=== PATIENT | male | born 1960 | race Caucasian/White ===

== ENCOUNTER → 2021-10-05 09:45 | Outpatient (CLI) | payer OTHER, MEDICAID, SELFPAY ==
--- NOTE | 2021-10-05 10:17 | DI.RAD.S_ITS ---
PROCEDURE: XR CHEST 2V INDICATIONS: HEMOPTYSIS TECHNIQUE: 2 views of the chest were acquired. COMPARISON: [facility], CT, CT ANGIO CHEST ABD, 08/30/2015, 10:48. [facility], CR, CHEST 2VW, 03/25/2015, 15:12. FINDINGS: Surgical changes and devices: None. Lungs and pleura: There are patchy indistinct opacities bilaterally in the lung bases. No pleural effusions or pneumothorax. Mediastinum: Mediastinal contours are normal. Heart size is normal. Bones and chest wall: No suspicious bony abnormalities. Soft tissues appear unremarkable. IMPRESSION: 1. Bilateral patchy indistinct opacities suggestive of pneumonia. Dictated by: Augustin Solis M.D. on 10/05/2021 at 10:29 Approved by: Augustin Solis M.D. on 10/05/2021 at 10:31
[2021-10-05 10:38] LABS: COVID19 -Nasal RAPID Negative (Negative)
== END ==
PROVIDERS: Referring Provider Nurse Practitioner Family; Visit Provider Nurse Practitioner Family
DX: Z20.822 Contact with and (suspected) exposure to COVID-19 (principal)
CPT/HCPCS: 71046; 87635

== ENCOUNTER 2023-01-01 09:43 | Emergency (ER) | payer OTHER, MEDICAID, SELFPAY ==
[2023-01-01] VITALS (20 sets, daily range): BP systolic 143–214; BP diastolic 77–122; PULSE 51–63; RESP 14–35; TEMP 36.6; O2SAT 94–100; BMI 25.5
--- NOTE | 2023-01-01 09:54 | DI.RAD.S_ITS ---
PROCEDURE: XR CHEST 1V INDICATIONS: chest pain TECHNIQUE: One view of the chest was acquired. COMPARISON: [facility], CR, XR CHEST 2V, 10/05/2021, 10:08. FINDINGS: Surgical changes and devices: None. Lungs and pleura: Lungs are clear. No pleural effusions or pneumothorax. Mediastinum: Mediastinal contours appear normal. Heart size is normal. Bones and chest wall: No suspicious bony lesions. Overlying soft tissues appear unremarkable. IMPRESSION: No acute cardiopulmonary pathology. Dictated by: Gee Hernandez M.D. on 01/01/2023 at 10:32 Approved by: Gee Hernandez M.D. on 01/01/2023 at 10:32
[2023-01-01] MEDS: ASPIRIN 81 MG CHEW TAB 324 MG PO (10:00)
[2023-01-01] MEDS: NITROGLYCERIN 0.4 MG SL TAB SL ×2 (10:02→10:17)
[2023-01-01 10:26] LABS: Prothrombin Time 11.8 SECONDS (10.1-12.7)
[2023-01-01 10:29] LABS: PTT Partial Thromboplastin Tim 30 SECONDS (26-36)
[2023-01-01 10:31] LABS: Alanine Aminotransferase 25 IU/L (<50); Albumin 4.1 g/dL (3.5-5.0); Albumin Globulin Ratio 1.2 (1.0-2.8); Alkaline Phosphatase 57 U/L (38-126); Aspartate Aminotransferase 26 IU/L (17-59); BUN Creatinine Ratio 16.7 (6-22); Blood Urea Nitrogen 15 mg/dL (9-20); Calcium 9.5 mg/dL (8.4-10.2); Carbon Dioxide 36 mmol/L (22-32); Chloride 96 mmol/L (98-107); Creatine Kinase 35 U/L (55-170); Estimated Glomerular Filt Rate > 60 mL/min (>60); Globulin 3.3 g/dL (1.7-4.1); Glucose 113 mg/dL (80-110); HEMOLYSIS < 15 (0-50); Lipase 37 U/L (23-300); Magnesium 1.5 mg/dL (1.6-2.3); Potassium 3.7 mmol/L (3.4-5.1); Sodium 136 mmol/L (137-145); Total Protein 7.4 g/dL (6.3-8.2)
[2023-01-01 10:36] LABS: Add Manual Diff / Slide Review NO; Basophils Absolute Auto 100 /uL (0-100); Eosinophils Absolute Auto 200 /uL (0-450); Eosinophils Percent Auto 2.7 % (2-4); Hematocrit 43.5 % (41-53); Hemoglobin 14.7 g/dL (13.5-17.5); Lymphocytes Absolute Auto 2300 /uL (1100-4500); Lymphocytes Percent Auto 26.3 % (25-40); Mean Corpuscular HGB Conc 33.8 % (30-36); Mean Corpuscular Volume 97.8 fL (80-100); Monocytes Absolute Auto 500 /uL (0-900); Monocytes Percent Auto 5.9 % (3-14); Neutrophils Absolute Auto 5500 /uL (1500-7000); Neutrophils Percent Auto 64.1 % (50-75); Platelet Count 254 X10^3/uL (150-400); Red Blood Cell Count 4.45 X10^6/uL (4.5-5.9); White Blood Cell Count 8.6 X10^3/uL (4.5-11.0)
[2023-01-01 10:41] LABS: COVID19 -Nasal RAPID Negative (Negative)
[2023-01-01 10:42] LABS: Troponin I < 0.012 ng/mL (0.01-0.034)
--- NOTE | 2023-01-01 12:13 | ED_ITS ---
HPI - Chest Pain General Chief Complaint: Chest Pain Stated Complaint: sent by [facility] BP issues Time Seen by Provider: 01/01/23 12:11 Source: patient Mode of arrival: Ambulatory Limitations: no limitations History of Present Illness HPI narrative: This is a 62-year-old male with history of hypertension on atenolol, li sinopril/HCTZ and aspirin 81 mg daily who presents with an episode of chest pressure that was substernal without radiation lasted about an hour while he was watching basketball on Sunday the 30 of December. He checked his blood pressure noticed systolic of 216 at that time, he has been checking his blood pressure throughout the weekend and is getting an average of 160s to 180s on his systolic. Patient states he had additional episode today where he had very slight discomfort in his chest substernally without radiation. He states nothing else seemed to make it worse or better. He states no diaphoresis. No lightheadedness or syncope. No shortness of breath. No nausea or vomiting. No diaphoresis. He states he is not had prior episodes in the past. He states he had 2 sublingual nitro here which he states did not seem to make a difference but he states it has improved. Patient's blood pressure did decrease with the nitro. Did take his a.m. medications today. He has not had prior cardiac workups or stress testing or heart catheterization. He denies prior surgeries. No known drug allergies. He does smoke tobacco smokes daily for the past 50 years, states he drinks 2 or 3 alcoholic drinks daily. He uses marijuana intermittently but no recreational drugs no IV drugs. Dr. Marty Hunter at [facility] is his primary care. Related Data Home Medications Medication Instructions Recorded Confirmed aspirin 81 mg tablet,delayed 81 mg PO DAILY 10/05/21 01/01/23 release (Adult Low Dose Aspirin) atenolol 50 mg tablet 50 mg PO DAILY 01/01/23 01/01/23 lisinopril 10 mg tablet 10 mg PO DAILY 01/01/23 01/01/23 Previous Rx's Medication Instructions Recorded lisinopril 20 2 tab PO DAILY #60 tabs 01/01/23 mg-hydrochlorothiazide 25 mg tablet Allergies Allergy/AdvReac Type Severity Reaction Status Date / Time No Known Drug Allergies Allergy Verified 01/01/23 09:54 Review of Systems Review of Systems ROS Unobtainable: All systems reviewed & are unremarkable except as noted in HPI and below Patient History Social History Smoking Status: Current every day smoker Smoking Status: Current every day smoker alcohol intake frequency: 3 or more drinks per day Substance Use Type: marijuana Exam Narrative Exam Narrative: GENERAL: Alert and oriented x three, male in mild distress. HEENT: Head normocephalic, atraumatic, EOMI, pupils reactive, face symmetric, moist mucous membranes NECK: Supple, full range of motion CARDIOVASCULAR: Regular rate and rhythm without murmurs, rubs or gallops. No reproducible chest pain. No rash or skin changes. RESPIRATORY: Breath sounds equal bilaterally, no wheezes rales or rhonchi. ABDOMEN: Soft, nontender. Normoactive bowel sounds all 4 quadrants. No guarding or rebound, rigidity, no mass : No CVA tenderness EXTREMITIES: Normal range of motion, no clubbing or edema. Neurovascularly intact. 2+ dorsalis pedis. No mottling, cyanosis or pallor or other skin changes noted. NEUROLOGICAL: Cranial nerves II through XII grossly intact. Moving all extremities SKIN: Warm, dry, no petechiae, no rashes or lesions. Initial Vital Signs Initial Vital Signs: Vital Signs Temperature 97.9 F 01/01/23 09:48 Pulse Rate 58 L 01/01/23 09:48 Respiratory Rate 18 01/01/23 09:48 Blood Pressure 214/96 H 01/01/23 09:48 Pulse Oximetry 99 01/01/23 09:48 Oxygen Delivery Method Room Air 01/01/23 09:48 Scores HEART Score Heart Score history: Moderately Suspicious Heart Score EKG: Non-Specific repolarization disturbance Heart Score Age: 45-64 years old Heart Score risk factors: 1-2 risk factors Heart Score troponin: < or = to normal limit Heart Score Total: 4 Course Orders Ordered: ED Orders 01/01/23 09:54 XR chest 1V Stat 01/01/23 10:00 COVID19 -Nasal RAPID Stat Complete Blood Count AUTO DIFF Stat Comprehensive Metabolic Panel Stat Lipase Stat Magnesium Stat PTT Partial Thromboplastin Avinash Stat Prothrombin Time INR Stat Troponin & CK Cardiac Panel Stat EKG-12 Lead Stat 01/01/23 12:06 EKG-12 Lead Stat 01/01/23 12:15 Troponin I Stat Discontinued Medications Aspirin (Aspirin 81 Mg Chew Tab) 324 mg PO NOW ONE Stop: 01/01/23 09:55 Last Admin: 01/01/23 10:00 Dose: 324 mg Documented By: NAYE Nitroglycerin (Nitroglycerin 0.4 Mg Sl Tab) 0.4 mg SL [id number] PRN PRN Reason: Chest Pain Last Admin: 01/01/23 10:17 Dose: 0.4 mg Documented By: Admin: 01/01/23 10:02 Dose: 0.4 mg Documented By: NAYE Vital Signs Vital signs: Vital Signs - 8 hr 01/01/23 10:45 01/01/23 10:45 01/01/23 11:00 Pulse Rate 53 L 51 L Respiratory Rate 23 21 Blood Pressure 145/97 H Pulse Oximetry 96 95 01/01/23 11:01 01/01/23 11:01 01/01/23 11:15 Pulse Rate 52 L 51 L Respiratory Rate 23 23 Blood Pressure 156/94 H Pulse Oximetry 94 95 01/01/23 11:15 01/01/23 11:30 01/01/23 11:30 Pulse Rate 51 L Respiratory Rate 21 Blood Pressure 162/97 H 171/104 H Pulse Oximetry 96 01/01/23 11:45 01/01/23 11:45 01/01/23 12:00 Pulse Rate 51 L Respiratory Rate 24 Blood Pressure 162/98 H 171/95 H Pulse Oximetry 95 01/01/23 12:00 01/01/23 12:15 01/01/23 12:15 Pulse Rate 51 L 56 L Respiratory Rate 19 29 H Blood Pressure 156/87 H Pulse Oximetry 96 96 01/01/23 12:30 01/01/23 12:30 01/01/23 12:45 Pulse Rate 51 L 52 L Respiratory Rate 23 27 H Blood Pressure 177/95 H Pulse Oximetry 97 97 01/01/23 12:45 01/01/23 13:00 01/01/23 13:01 Pulse Rate 52 L Respiratory Rate 29 H Blood Pressure 174/98 H 194/96 H Pulse Oximetry 96 01/01/23 13:01 01/01/23 13:16 01/01/23 13:16 Pulse Rate 53 L 53 L Respiratory Rate 35 H 29 H Blood Pressure 164/122 H Pulse Oximetry 96 96 MDM - Chest Pain Lab Data 01/01/23 10:00 01/01/23 10:00 Labs: Lab Results 01/01/23 01/01/23 01/01/23 Range/Units 10:00 10:00 10:00 WBC 8.6 (4.5-11.0) X10^3/uL RBC 4.45 L (4.5-5.9) X10^6/uL Hgb 14.7 (13.5-17.5) g/dL Hct 43.5 (41-53) % MCV 97.8 (80-100) fL MCH 33.0 (26-34) PG MCHC 33.8 (30-36) % RDW 13.0 (11.6-14.8) % Plt Count 254 (150-400) X10^3/uL Neut % (Auto) 64.1 (50-75) % Lymph % (Auto) 26.3 (25-40) % [place]mort[place] % (Auto) 5.9 (3-14) % Eos % (Auto) 2.7 (2-4) % Baso % (Auto) 1.0 (0-2) % Neut # (Auto) 5500 (4490-6815) /uL Lymph # (Auto) 2300 (5006-4962) /uL Th[place]morton # (Auto) 500 (0-900) /uL Eos # (Auto) 200 (0-450) /uL Baso # (Auto) 100 (0-100) /uL PT 11.8 (10.1-12.7) SECONDS INR 1.0 (0.9-1.3) APTT 30 (26-36) SECONDS Sodium 136 L (137-145) mmol/L Potassium 3.7 (3.4-5.1) mmol/L Chloride 96 L (98-107) mmol/L Carbon Dioxide 36 H (22-32) mmol/L BUN 15 (9-20) mg/dL Creatinine 0.90 (0.66-1.25) mg/dL Estimated GFR > 60 (>60) mL/min BUN/Creatinine Ratio 16.7 (6-22) Glucose 113 H (80-110) mg/dL Calcium 9.5 (8.4-10.2) mg/dL Magnesium 1.5 L (1.6-2.3) mg/dL Total Bilirubin 1.0 (0.2-1.3) mg/dL AST 26 (17-59) IU/L ALT 25 (<50) IU/L Alkaline Phosphatase 57 (38-126) U/L Total Creatine Kinase 35 L (55-170) U/L CK-MB (CK-2) TNP CK-MB (CK-2) Rel Index TNP Troponin I < 0.012 (0.01-0.034) ng/mL Total Protein 7.4 (6.3-8.2) g/dL Albumin 4.1 (3.5-5.0) g/dL Globulin 3.3 (1.7-4.1) g/dL Albumin/Globulin Ratio 1.2 (1.0-2.8) Lipase 37 (23-300) U/L SARS-CoV-2 (PCR) (Negative) 01/01/23 01/01/23 Range/Units 10:00 12:15 WBC (4.5-11.0) X10^3/uL RBC (4.5-5.9) X10^6/uL Hgb (13.5-17.5) g/dL Hct (41-53) % MCV (80-100) fL MCH (26-34) PG MCHC (30-36) % RDW (11.6-14.8) % Plt Count (150-400) X10^3/uL Neut % (Auto) (50-75) % Lymph % (Auto) (25-40) % Th[place]morton % (Auto) (3-14) % Eos % (Auto) (2-4) % Baso % (Auto) (0-2) % Neut # (Auto) (3027-0287) /uL Lymph # (Auto) (6563-2079) /uL Throckmorton # (Auto) (0-900) /uL Eos # (Auto) (0-450) /uL Baso # (Auto) (0-100) /uL PT (10.1-12.7) SECONDS INR (0.9-1.3) APTT (26-36) SECONDS Sodium (137-145) mmol/L Potassium (3.4-5.1) mmol/L Chloride (98-107) mmol/L Carbon Dioxide (22-32) mmol/L BUN (9-20) mg/dL Creatinine (0.66-1.25) mg/dL Estimated GFR (>60) mL/min BUN/Creatinine Ratio (6-22) Glucose (80-110) mg/dL Calcium (8.4-10.2) mg/dL Magnesium (1.6-2.3) mg/dL Total Bilirubin (0.2-1.3) mg/dL AST (17-59) IU/L ALT (<50) IU/L Alkaline Phosphatase (38-126) U/L Total Creatine Kinase (55-170) U/L CK-MB (CK-2) CK-MB (CK-2) Rel Index Troponin I < 0.012 (0.01-0.034) ng/mL Total Protein (6.3-8.2) g/dL Albumin (3.5-5.0) g/dL Globulin (1.7-4.1) g/dL Albumin/Globulin Ratio (1.0-2.8) Lipase (23-300) U/L SARS-CoV-2 (PCR) Negative (Negative) Imaging Data Chest x-ray: Radiologist's Impression: Close Chest X-Ray (Signed) Gee Hernandez - 01/01/23 Chest X-Ray (Signed) Augustin Solis - 10/05/21 [place] [address] XRay Report Signed Patient: Armand Ramires MR#: [id number] : 1960 Acct:[id number] Age/Sex: 62 / M Date of Service: 01/01/23 Loc: ED Accession Number: [id number] ?? Procedure: XR chest 1V Ordering Provider: Roberta Moody D.O. PROCEDURE:? XR CHEST 1V ? INDICATIONS:? chest pain ? TECHNIQUE:? One view of the chest was acquired.? ? COMPARISON:? [facility], , XR CHEST 2V, 10/05/2021, 10:08. ? FINDINGS:? ? Surgical changes and devices:? None.? ? Lungs and pleura:? Lungs are clear.? No pleural effusions or pneumothorax.? ? Mediastinum:? Mediastinal contours appear normal.? Heart size is normal.? ? Bones and chest wall:? No suspicious bony lesions.? Overlying soft tissues appear unremarkable.? ? IMPRESSION:? No acute cardiopulmonary pathology. ? ? Dictated by: Gee Hernandez M.D. on 01/01/2023 at 10:32 ? ? Approved by: Gee Hernandez M.D. on 01/01/2023 at 10:32?? ECG Data Attestation: I personally reviewed and interpreted this ECG as follows: Prior ECG tracings: available for review Interpretation: Sinus bradycardia rate of 54 DC 140 QRS 88 QTC 392. No acute ST change appreciated. No priors for comparison. Sinus bradycardia rate of 51 DC 136 QRS of 90 QTC 385. No acute ST elevation or depression appreciated. MDM Narrative Medical decision making narrative: This is a 62-year-old male who presents with complaint of substernal/left-sided chest pain without radiation 1st episode was Sunday for about an hour or watching basketball had recurrent episode this morning he also noted some discomfort in his foot at same time throughout the night but he states there seemed to be color changes none are appreciated today by himself or myself. Patient's EKGs show possible LVH x2 no priors for comparison. Negative troponin x2, normoactive chest x-ray, labs otherwise show slightly low magnesium total CK is low, no significant anemia. COVID is negative. Workup does not show other cause for his discomfort today. Discussed I would like to keep patient for chest pain observation. patient defers we did discuss risks versus benefits and the difficulty can be getting outpatient stress test currently discussed that he does appear to be having somewhat elevated blood pressures so I would adjust his medication his heart rate is on the lower end so it adjust his lisinopril/HCTZ and continue his atenolol 50 mg daily. Patient is to continue his aspirin 81 mg daily. We discussed return precautions. Asked him to follow up with his physician for recheck and outpatient stress testing as I think his symptoms and story very much warrant this. He does follow with his physician but states it is hard to get in and would like alternative options some additional names were given. Discharge Plan Departure Patient Disposition: Home Clinical Impression: Chest pain Instructions: DI for Chest Pain Activity Restrictions/Additional Instructions: I do recommend you stay for observation for stress testing. Please contact your physician to set up stress testing. Ask your physicians about getting ABIs for alternative tests this can check for peripheral vascular disease. Continue your aspirin daily. Continue your current medications, lets increase your lisinopril/HCT to 1 tablet in the morning and 1 tablet in the afternoon. Prescription sent to [facility] Please return for new or worsening chest pain, shortness of breath, lightheadedness or passing out, persistent vomiting new swelling in her extremities or new color changes or pain in your feet. Prescriptions: New lisinopril-hydrochlorothiazide 20-25 mg tablet 2 tab PO DAILY Qty: 60 0RF No Action aspirin [Adult Low Dose Aspirin] 81 mg tablet,delayed release (DR/EC) 81 mg PO DAILY lisinopril 10 mg Tablet 10 mg PO DAILY atenolol 50 mg Tablet 50 mg PO DAILY Referrals: Elsa Ferguson MD [Primary Care Provider] - Stand Alone Forms: Patient Portal/API
[2023-01-01 12:44] LABS: Troponin I < 0.012 ng/mL (0.01-0.034)
--- NOTE | 2023-01-01 12:59 | PC.NURSE ---
Medication reconciled, pt is unsure of dose of lisinopril and atenolol but believes it is what is currently documented.
== END 2023-01-01 13:26 | disposition home or self-care (01) ==
PROVIDERS: Emergency Provider Emergency Medicine; PCP Family Medicine
DX: R07.9 Chest pain, unspecified (principal); Z20.822 Contact with and (suspected) exposure to COVID-19
CPT/HCPCS: 36415; 71045; 80053; 82550; 83690; 83735; 84484; 85025; 85610; 85730; 87635; 93005; 99284; C9803

== ENCOUNTER 2023-05-30 11:12 | Emergency (ER) | payer OTHER, MEDICAID, SELFPAY ==
[2023-05-30 11:27] VITALS: BP 178/86; PULSE 62; RESP 16; TEMP 37; O2SAT 99; BMI 26.3
--- NOTE | 2023-05-30 12:33 | DI.US.S_ITS ---
PROCEDURE: US PERIPH VENOUS LOW EXTREM LT INDICATIONS: LEFT CALF PAIN TECHNIQUE: Real-time imaging, as well as color and pulse Doppler interrogation, were performed of the lower extremity deep veins from the inguinal ligament to the popliteal fossa, with documentation of the visualized calf veins. COMPARISON: None. FINDINGS: The common femoral, femoral, popliteal, and the visualized calf veins are normally compressible, and free of intraluminal thrombus. Color and pulse Doppler demonstrate normal phasic intraluminal flow. There is normal augmentation response to distal compression maneuver. IMPRESSION: No findings of lower extremity deep venous thrombosis. Dictated by: Petros Tuttle M.D. on 05/30/2023 at 12:32 Approved by: Petros Tuttle M.D. on 05/30/2023 at 12:32
--- NOTE | 2023-05-30 12:34 | ED.EXTPRO ---
HPI - Extremity Problem <Eloisa Pulido PA-C - Last Filed: 05/30/23 14:50> General Chief complaint: Extremity Problem,Nontraumatic Stated complaint: L/leg pain and tingling sensation Time Seen by Provider: 05/30/23 12:21 History of Present Illness HPI Narrative: Patient is a 63-year-old male who presents with left lower extremity pain and tingling for 48 hours. 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 The sleep sensation has never resolved and he has intense pain feeling of numbness in his lateral left calf. He reports it feels like his foot is full of blood and sloshing around. He denies any trauma to his lower extremity. He is able to ambulate but it is very painful. Denies any previous history with numbness or tingling in his extremities. He is tried elevating the leg. He does not have any associated back pain. He is no history of DVT, no recent surgery or or travel or immobilization. Related Data Home Medications Medication Instructions Recorded Confirmed aspirin 81 mg tablet,delayed 81 mg PO DAILY 10/05/21 01/01/23 release (Adult Low Dose Aspirin) atenolol 50 mg tablet 50 mg PO DAILY 01/01/23 01/01/23 lisinopril 10 mg tablet 10 mg PO DAILY 01/01/23 01/01/23 Previous Rx's Medication Instructions Recorded lisinopril 20 2 tab PO DAILY #60 tabs 01/01/23 mg-hydrochlorothiazide 25 mg tablet Allergies Allergy/AdvReac Type Severity Reaction Status Date / Time No Known Drug Allergies Allergy Verified 01/01/23 09:54 Review of Systems <Eloisa Pulido PA-C - Last Filed: 05/30/23 14:50> Review of Systems ROS Unobtainable: All systems reviewed & are unremarkable except as noted in HPI and below Patient History <Eloisa Pulido PA-C - Last Filed: 05/30/23 14:50> Social History Smoking Status: Current every day smoker Smoking Status: Current every day smoker alcohol intake frequency: 3 or more drinks per day Substance Use Type: marijuana Exam <Eloisa Pulido PA-C - Last Filed: 05/30/23 14:50> Narrative Exam Narrative: GENERAL: 63 year old patient appears stated age. Well-developed patient, in no distress. NEURO: AOx3. HEAD: Atraumatic. Normocephalic. RESPIRATORY: No distress EXTREMITIES: No lower extremity edema, left calf is supple. No erythema. Pain is localized over the lateral calf. Strong DP pulse, foot is warm, 5/5 strength with plantar flexion and dorsiflexion. BACK: Nontender without deformity or crepitance. No flank tenderness. SKIN: No rash or erythema of visible areas Initial Vital Signs Initial Vital Signs: Vital Signs Temperature 98.6 F 05/30/23 11:27 Pulse Rate 62 05/30/23 11:27 Respiratory Rate 16 05/30/23 11:27 Blood Pressure 178/86 H 05/30/23 11:27 Pulse Oximetry 99 05/30/23 11:27 Oxygen Delivery Method Room Air 05/30/23 11:27 <Richard Boone DO - Last Filed: 06/01/23 14:42> Initial Vital Signs Initial Vital Signs: Vital Signs Temperature 98.6 F 05/30/23 11:27 Pulse Rate 62 05/30/23 11:27 Respiratory Rate 16 05/30/23 11:27 Blood Pressure 178/86 H 05/30/23 11:27 Pulse Oximetry 99 05/30/23 11:27 Oxygen Delivery Method Room Air 05/30/23 11:27 Course <Eloisa Pulido PA-C - Last Filed: 05/30/23 14:50> Orders Ordered: ED Orders 05/30/23 12:33 perip venous low extrem lt Stat Vital Signs Vital signs: Vital Signs - 8 hr 05/30/23 11:27 Temperature 98.6 F Pulse Rate 62 Respiratory Rate 16 Blood Pressure 178/86 H Pulse Oximetry 99 Oxygen Delivery Method Room Air <Richard Boone DO - Last Filed: 06/01/23 14:42> Orders Ordered: ED Orders 05/30/23 12:33 perip venous low extrem lt Stat Vital Signs Vital signs: Vital Signs - 8 hr 05/30/23 11:27 Temperature 98.6 F Pulse Rate 62 Respiratory Rate 16 Blood Pressure 178/86 H Pulse Oximetry 99 Oxygen Delivery Method Room Air MDM - Extremity (Nontraumatic) <Eloisa Pulido PA-C - Last Filed: 05/30/23 14:50> Imaging Data US - DVT: Radiologist's Impression: PROCEDURE:? US PERIPH VENOUS LOW EXTREM LT ? INDICATIONS:? LEFT CALF PAIN ? TECHNIQUE:? Real-time imaging, as well as color and pulse Doppler interrogation, were performed of the lower extremity deep veins from the inguinal ligament to the popliteal fossa, with documentation of the visualized calf veins.? ? COMPARISON:? None. ? FINDINGS:? The common femoral, femoral, popliteal, and the visualized calf veins are normally compressible, and free of intraluminal thrombus.? Color and pulse Doppler demonstrate normal phasic intraluminal flow.? There is normal augmentation response to distal compression maneuver.? ? ? IMPRESSION:? No findings of lower extremity deep venous thrombosis. ? ? Dictated by: Pertos Tuttle M.D. on 05/30/2023 at 12:32 ? ? Approved by: Petros Tuttle M.D. on 05/30/2023 at 12:32 ? MDM Narrative Medical decision making narrative: Multiple etiologies for patient's symptoms considered including, but not limited to: Compressive neuropathy of the peroneal nerve, DVT, bony abnormality. No history of trauma, no known risk factors for DVT and physical exam not consistent with DVT. Will obtain lower extremity Doppler to rule out DVT but suspect a compressive neuropathy from peroneal nerve injury after prolonged sitting. DVT study negative. Patient's symptoms improved over duration of stay with above-stated therapies. 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 Your DVT study was negative. I suspect your pain is related to compression of the fibular nerve while you were sitting. It will take time to resolve. You can try ibuprofen, Tylenol, elevation, ice, rest, heat. *What to do: *Please continue to take your regular medications as directed. [ ] New medication prescriptions sent to your pharmacy: [ ] [ ] New medication written as a paper prescription [ x] No new medications given *Please follow up with your primary care provider in 2-3 days, call for an appointment. Let them know you were seen in the Emergency Department and that we ask that you be seen in follow up. We will electronically transmit a record of today's note if your PCP is in our system *If you do not have a primary care provider please contact the [facility] Resource line at [phone]. They will ask some questions about your medical history and help get you set up with a doctor in the community. *Return to Emergency Department if you should have any new, worsening or concerning symptoms, such as [fever greater than 101 F, shaking chills, worsening pain, persistent vomiting or other bothersome symptoms] FIBULAR (PERONEAL) NERVE Compression at the fibular neck???The most frequent site of injury to the common fibular (peroneal) nerve is just below the knee as the nerve wraps around the lateral aspect of the fibula, immediately before dividing into its deep and superficial branches. Compression at this site is frequently produced by external pressure on the nerve due to prolonged lying, such as during surgery, palmar pressure to the fibular neck during childbirth, or prolonged hospitalization. Crossing the legs, protracted squatting, and leg casts also can cause compression at this site. The typical clinical presentation of common fibular (peroneal) neuropathy at the fibular neck is acute foot drop (difficulty dorsiflexing the foot against resistance or gravity). Patients describe the foot as limp; there is a tendency to trip over it unless they compensate by flexing the hip higher when walking, producing what is called a steppage gait. Patients may also complain of paresthesias and/or sensory loss over the dorsum of the foot and lateral mariano (superficial fibular (peroneal) nerve territory) [[email or web address]-[email or web address]-ywxpn-syndromes/abstract/[email or web address]]. In one study, 79 percent of 103 patients with common fibular (peroneal) neuropathy complained of sensory loss; pain was relatively infrequent, affecting only 17 percent [[email or web address]-pf-prydo-nolvyyomi-tvxkutycli-ohzhl-syndromes/abstract/7]. Examination typically reveals weakness in foot dorsiflexion and foot eversion (deep and superficial fibular (peroneal) nerve-innervated, respectively), with normal inversion and plantar flexion (tibial nerve). Sensory disturbance is confined to the dorsum of the foot, including the web space between digits 1 and 2 and the lateral mariano. Reflexes are normal. Electromyography (EMG) and nerve conduction studies (NCS) are very useful for identifying fibular (peroneal) neuropathy at the fibular neck; conduction block on fibular (peroneal) motor studies may be identified at the site, even in the acute setting. Reduction in distal motor and sensory response amplitudes can occur in severe cases, suggesting axonal injury. Needle examination discloses abnormalities in the deep and superficial fibular (peroneal) nerve innervated muscles. Treatment???In contrast to upper extremity neuropathies, treating compression neuropathies of the lower extremity is often not possible or of limited benefit. In patients with a fibular (peroneal) neuropathy at the fibular neck, for example, no specific treatment is available other than removing pressure on the nerve (such as extra cushioning while sleeping and avoidance of crossing the legs during the day). An ankle-foot orthosis splint, to keep the foot dorsiflexed, should be used until active movement has recovered. Physical therapy progressing from passive range of movement to passive-assistive, active, and active-resistance exercise under supervision with a physical therapist may also be helpful. Walking is particularly important therapy. Prognosis depends upon the degree of dysfunction. In one study of 13 patients with idiopathic common fibular (peroneal) palsy, those presenting with complete lesions (no preserved function in foot dorsiflexion and foot eversion) made no significant recovery, while patients with even mildly preserved strength recovered fully Operative decompression can be considered for patients who do not recover on their own, although true entrapment of the fibular (peroneal) nerve is uncommon. One market investigator, for example, explored 26 common fibular (peroneal) nerves in 23 patients; evidence for entrapment was found in only one of the eight with no other apparent cause for the neuropathy ]. Entrapment should be suspected when symptoms and signs progress and no other cause is identified. In that circumstance, surgical decompression can be successful. Compression at the ankle???The deep fibular (peroneal) nerve is rarely injured in the region of the ankle. Usually injury is due to a tight-fitting rim or strap from a shoe. Patients generally complain of pain in the region with minimal weakness and sensory disturbance involving only the web space between digits 1 and 2. Directed physical examination reveals minimal abnormalities. NCS may demonstrate a prolonged distal motor latency; on needle EMG, abnormalities can be identified in extensor digitorum brevis. Other???Injury to the common fibular (peroneal) nerve occasionally occurs in the popliteal fossa, immediately after the division of the sciatic nerve into tibial and common fibular (peroneal) nerves. Alexander's cysts are the most common cause in this region. Nerve infarctions due to mononeuropathy multiplex also occur in the area of the knee and, at least acutely, may be difficult to distinguish from a compressive neuropathy at the fibular neck, although pain is prominent in vasculitic lesions and is minimal in compressive ones. Prescriptions: No Action aspirin [Adult Low Dose Aspirin] 81 mg tablet,delayed release (DR/EC) 81 mg PO DAILY lisinopril 10 mg Tablet 10 mg PO DAILY atenolol 50 mg Tablet 50 mg PO DAILY lisinopril-hydrochlorothiazide 20-25 mg tablet 2 tab PO DAILY Qty: 60 0RF Referrals: Elsa Ferguson MD [Primary Care Provider] - Stand Alone Forms: Patient Portal/API <Richard Boone DO - Last Filed: 06/01/23 14:42> Cosign ED Attending Coschristianoature Attestation: I was immediately available in the department for consultation. Documentation has been reviewed. I agree with assessment and plan.
== END 2023-05-30 13:13 | disposition home or self-care (01) ==
PROVIDERS: Emergency Provider Physician Assistant; PCP Family Medicine
DX: G57.90 Unspecified mononeuropathy of unspecified lower limb (principal); Z79.899 Other long term (current) drug therapy
CPT/HCPCS: 93971; 99283

== ENCOUNTER 2024-05-28 03:53 | Emergency (ER) | payer OTHER, MEDICAID, SELFPAY ==
[2024-05-28 04:00] VITALS: BP 223/120; PULSE 63; RESP 20; TEMP 36.5; O2SAT 97; BMI 25.7
[2024-05-28] MEDS: diphenhydrAMINE 50 MG/ML VIAL 25 MG IV (04:03)
[2024-05-28] MEDS: methylPREDNISolone 125 MG/2 ML VIAL IV (04:04)
--- NOTE | 2024-05-28 04:11 | ED.ALLEREA ---
HPI - Allergic Reaction General Chief complaint: Allergic Reaction Stated complaint: bee sting face swollen Time Seen by Provider: 05/28/24 03:56 Source: patient Mode of arrival: Ambulatory History of Present Illness HPI narrative: 64-year-old male with a history of hypertension. No prior history allergic reaction to insect stings stated that he sustained a bee sting to his forehead several hours ago. Since that he has had increase in redness and swelling to his face also has fullness in his upper chest. No problems breathing. No nausea or vomiting. Did take 1 Benadryl earlier the much improvement of symptoms. He also states he has not taken high blood pressure medicine in the past several days. Related Data Home Medications Medication Instructions Recorded Confirmed aspirin 81 mg tablet,delayed 81 mg PO DAILY 10/05/21 09/14/23 release (Adult Low Dose Aspirin) atenolol 50 mg tablet 50 mg PO DAILY 01/01/23 09/14/23 lisinopril 10 mg tablet 10 mg PO DAILY 01/01/23 09/14/23 Previous Rx's Medication Instructions Recorded lisinopril 20 2 tab PO DAILY #60 tabs 01/01/23 mg-hydrochlorothiazide 25 mg tablet prednisone 20 mg tablet 20 mg PO DAILY 7 days #7 tabs 05/28/24 Allergies Allergy/AdvReac Type Severity Reaction Status Date / Time hornet venom Allergy Swelling Verified 05/28/24 04:08 of the Eye Review of Systems Review of Systems ROS Unobtainable: All systems reviewed & are unremarkable except as noted in HPI and below Patient History Social History Smoking Status: Current every day smoker Smoking Status: Current every day smoker alcohol intake frequency: 3 or more drinks per day Substance Use Type: marijuana Exam Initial Vital Signs Initial Vital Signs: Vital Signs Temperature 97.7 F 05/28/24 04:00 Pulse Rate 63 05/28/24 04:00 Respiratory Rate 20 05/28/24 04:00 Blood Pressure 223/120 H 05/28/24 04:00 Pulse Oximetry 97 05/28/24 04:00 Oxygen Delivery Method Room Air 05/28/24 04:00 Const General: cooperative, well developed and No ill appearing HENMT Head: normal to inspection and normocephalic Resp Effort & Inspection: normal respiratory effort Auscultation: clear to auscultation bilaterally Cardio Rate: regular rate Rhythm: regular rhythm Skin Other: Patient with swelling around both of his eyes and on his cheeks. Also swelling in his upper chest. No urticaria noted on the rest of his body. Neuro General: patient alert and patient awake Course Orders Ordered: Discontinued Medications Diphenhydramine HCl (Diphenhydramine 50 Mg/Ml Vial) 25 mg IV NOW ONE Stop: 05/28/24 03:57 Last Admin: 05/28/24 04:03 Dose: 25 mg Documented By: CARLOS Methylprednisolone (Methylprednisolone 125 Mg/2 Ml Vial) 125 mg IV NOW ONE Stop: 05/28/24 03:57 Last Admin: 05/28/24 04:04 Dose: 125 mg Documented By: CARLOS Vital Signs Vital signs: Vital Signs - 8 hr 05/28/24 04:00 Temperature 97.7 F Pulse Rate 63 Respiratory Rate 20 Blood Pressure 223/120 H Pulse Oximetry 97 Oxygen Delivery Method Room Air MDM - Allergic Reaction MDM Narrative Medical decision making narrative: After Benadryl and steroids here in the emergency department he did have a vast improvement of his symptoms. Not completely resolved but definitely improved. His symptoms seemed to only involve his skin. He has no signs of infection. Will put him on steroids for the next couple days. Benadryl at home as needed. We also discussed his elevation in his blood pressure. He stated that he was not taken his medicine in the past couple days. He will continue to take his blood pressure at home and contact his primary doctor if needed. He expressed understanding and agreement with the plan. Discharge Plan Departure Patient Disposition: Home Clinical Impression: Allergic reaction, Hypertension, Bee sting reaction Instructions: DI for General Allergic Reactions Activity Restrictions/Additional Instructions: I do recommend that you continue to take your blood pressure medicines at home. Continue to take your blood pressure at home and if it is persistently elevated contact your primary doctor for further evaluation. Do recommend that you take the steroids as directed. Return to the emergency department for new or worsening symptoms. Prescriptions: New prednisone 20 mg tablet 20 mg PO DAILY 7 Days Qty: 7 0RF No Action aspirin [Adult Low Dose Aspirin] 81 mg tablet,delayed release (DR/EC) 81 mg PO DAILY lisinopril 10 mg Tablet 10 mg PO DAILY atenolol 50 mg Tablet 50 mg PO DAILY lisinopril-hydrochlorothiazide 20-25 mg tablet 2 tab PO DAILY Qty: 60 0RF Referrals: Elsa Ferguson MD [Primary Care Provider] - Stand Alone Forms: Patient Portal/API
[2024-05-28 05:45] VITALS: BP 199/98; PULSE 55; RESP 18; O2SAT 98
== END 2024-05-28 05:45 | disposition home or self-care (01) ==
PROVIDERS: Emergency Provider Emergency Medicine; PCP Family Medicine
DX: T63.441A Toxic effect of venom of bees, accidental (unintentional), initial encounter (principal); I10 Essential (primary) hypertension; F17.200 Nicotine dependence, unspecified, uncomplicated
CPT/HCPCS: 36415; 96374; 96375; 99284; J1200; J2919

== ENCOUNTER 2025-01-05 08:13 | Emergency (ER) | payer MEDICAID, SELFPAY ==
[2025-01-05] VITALS (11 sets, daily range): BP systolic 145–177; BP diastolic 85–111; PULSE 99–140; RESP 13–25; TEMP 36.6–37.1; O2SAT 95–97; BMI 25.0
--- NOTE | 2025-01-05 08:19 | EKG_ITS ---
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
--- NOTE | 2025-01-05 08:25 | DI.RAD.S_ITS ---
PROCEDURE: XR CHEST 1V INDICATIONS: dizzy,abdo pain TECHNIQUE: One view of the chest was acquired. COMPARISON: [facility], PRANEETH, XR CHEST 1V, 01/01/2023, 10:03. [facility], CR, XR CHEST 2V, 10/05/2021, 10:08. FINDINGS AND IMPRESSION: No consolidation or pleural effusion on this single view study. Heart size is at the upper limit of normal. Unremarkable osseous structures. No pneumoperitoneum under the hemidiaphragms. Dictated by: Jorge Little M.D. on 01/05/2025 at 8:46 Approved by: Jorge Little M.D. on 01/05/2025 at 8:47
[2025-01-05] MEDS: SODIUM CHLORIDE 0.9% 1,000 ML 150 ML IV (08:31)
[2025-01-05 08:41] LABS: Add Manual Diff / Slide Review NO; Basophils Absolute Auto 100 /uL (0-100); Basophils Percent Auto 0.6 % (0-2); Eosinophils Absolute Auto 200 /uL (0-450); Eosinophils Percent Auto 2.2 % (2-4); Hematocrit 50.3 % (41-53); Hemoglobin 17.3 g/dL (13.5-17.5); Lymphocytes Absolute Auto 2100 /uL (1100-4500); Lymphocytes Percent Auto 24.1 % (25-40); Mean Corpuscular HGB Conc 34.3 % (30-36); Mean Corpuscular Hemoglobin 33.9 PG (26-34); Mean Corpuscular Volume 98.8 fL (80-100); Monocytes Absolute Auto 700 /uL (0-900); Neutrophils Absolute Auto 5600 /uL (1500-7000); Neutrophils Percent Auto 65.1 % (50-75); Platelet Count 274 X10^3/uL (150-400); Red Cell Distribution Width 13.3 % (11.6-14.8); White Blood Cell Count 8.5 X10^3/uL (4.5-11.0)
--- NOTE | 2025-01-05 08:49 | ED.ABDPAIN ---
HPI - Abdominal Pain General Chief Complaint: Abdominal Pain Stated Complaint: Dizzy, Stomach pain, Sweaty Time Seen by Provider: 01/05/25 08:25 Source: patient, RN notes reviewed and old records reviewed Mode of arrival: Ambulatory Limitations: no limitations History of Present Illness HPI narrative: 64-year-old male history of hypertension, chronic tobacco use, chronic alcohol use who presents with complaint of stomach pain which he describes as sort of periumbilical has been there for a little while states that it has been persistent that is almost always there he notes that in the last day or so it is radiated towards his back in the ribs. He states that is sort of comes and goes. It has not changed location otherwise. He came today because he started to feel little bit dizzy and sweaty. Did not have any syncope. He denies any chest pain no shortness of breath. States no nausea or vomiting. No issues with bowel movements he has had normal stools. Had some frequency overnight with his urination but notes he recently started on Flomax. Denies any dysuria urgency or frequency during the day. Denies any new swelling in his extremities. States he feels sort of tingling all over but no new numbness tingling or weakness in his extremities. Patient states he was takes atenolol, lisinopril/hydrochlorothiazide, Flomax in an aspirin daily. He states no prior surgeries. No known drug allergies. This may smokes about a 1 pack per day of tobacco, has 3 alcoholic drinks daily. Uses marijuana occasionally denies any other recreational drugs. Dr. Ferguson is his primary care physician. Related Data Home Medications Medication Instructions Recorded Confirmed aspirin 81 mg tablet,delayed 81 mg PO DAILY 10/05/21 09/14/23 release (Adult Low Dose Aspirin) atenolol 50 mg tablet 50 mg PO DAILY 01/01/23 09/14/23 lisinopril 10 mg tablet 10 mg PO DAILY 01/01/23 09/14/23 Previous Rx's Medication Instructions Recorded lisinopril 20 2 tab PO DAILY #60 tabs 01/01/23 mg-hydrochlorothiazide 25 mg tablet diltiazem HCl 120 mg 120 mg PO DAILY #30 caps 01/05/25 capsule,extended release 24 hr rivaroxaban 20 mg tablet (Xarelto) 20 mg PO DAILY #30 tabs 01/05/25 Allergies Allergy/AdvReac Type Severity Reaction Status Date / Time hornet venom Allergy Swelling Verified 05/28/24 04:08 of the Eye Review of Systems Review of Systems ROS Unobtainable: All systems reviewed & are unremarkable except as noted in HPI and below Patient History Social History Smoking Status: Current every day smoker Smoking Status: Current every day smoker alcohol intake frequency: 3 or more drinks per day Alcohol type: beer Exam Narrative Exam Narrative: GENERAL: Alert and oriented x three, male in mild distress HEENT: Head normocephalic, atraumatic, EOMI, pupils reactive, patient has spider veins and rhinophyma, face symmetric, moist mucous membranes NECK: Supple, full range of motion CARDIOVASCULAR: Irregularly irregular and tachycardic rate and rhythm without murmurs, rubs or gallops. No JVD. No edema. Cap refill less than 2 seconds all 4 extremities. RESPIRATORY: Breath sounds equal bilaterally, no wheezes rales or rhonchi. No tachypnea or accessory muscle use. ABDOMEN: Soft, patient has some mild tenderness particularly at the umbilicus but also little bit deeper in the pericumbilical area. Normoactive bowel sounds all 4 quadrants. No guarding or rebound, rigidity, no mass : No CVA tenderness EXTREMITIES: Normal range of motion, no clubbing or edema. Neurovascularly intact NEUROLOGICAL: Cranial nerves II through XII grossly intact. Moving all extremities SKIN: Warm, dry, no petechiae, no rashes or lesions. Initial Vital Signs Initial Vital Signs: Vital Signs Pulse Rate 140 H 01/05/25 08:16 Course Orders Ordered: ED Orders 01/05/25 10:05 Urine Culture Stat Urine Microscopic Stat Discontinued Medications Diltiazem HCl (Diltiazem 25 Mg/5 Ml Sdv) 10 mg IV NOW ONE Stop: 01/05/25 09:00 Last Admin: 01/05/25 09:13 Dose: 10 mg Documented By: Diltiazem HCl (Diltiazem Cd 120 Mg Cap) 120 mg PO NOW ONE Stop: 01/05/25 10:09 Last Admin: 01/05/25 10:22 Dose: 120 mg Documented By: Sodium Chloride (Normal Saline 0.9%) 1,000 mls @ 150 mls/hr IV CONT ALBERTO Last Admin: 01/05/25 08:31 Dose: 150 mls/hr Documented By: RAVI Diltiazem HCl 125 mg/ Sodium (Chloride) 125 mls @ 5 mls/hr IV TITRATE ALBERTO; Protocol Last Admin: 01/05/25 10:03 Dose: Not Given Documented By: Rivaroxaban (Rivaroxaban 10 Mg Tablet) 20 mg PO NOW ONE Stop: 01/05/25 10:09 Last Admin: 01/05/25 10:22 Dose: 20 mg Documented By: Vital Signs Vital signs: Vital Signs - 8 hr 01/05/25 08:16 01/05/25 08:18 01/05/25 08:18 Temperature Pulse Rate 140 H 134 H Respiratory Rate 13 Blood Pressure 159/111 H Pulse Oximetry 97 Oxygen Delivery Method 01/05/25 08:19 01/05/25 08:19 01/05/25 08:28 Temperature 97.8 F Pulse Rate 129 H 140 H Respiratory Rate 21 18 Blood Pressure 154/103 H 159/101 H Pulse Oximetry 97 96 Oxygen Delivery Method Room Air 01/05/25 08:30 01/05/25 08:30 01/05/25 09:13 Temperature Pulse Rate 115 H 102 H Respiratory Rate 24 Blood Pressure 152/85 H 175/87 H Pulse Oximetry 96 Oxygen Delivery Method 01/05/25 09:13 01/05/25 09:15 01/05/25 09:15 Temperature Pulse Rate 131 H 106 H Respiratory Rate 22 Blood Pressure 177/96 H Pulse Oximetry 97 Oxygen Delivery Method 01/05/25 09:30 01/05/25 09:30 01/05/25 09:44 Temperature Pulse Rate 104 H Respiratory Rate 22 Blood Pressure 145/100 H 158/102 H Pulse Oximetry 95 Oxygen Delivery Method 01/05/25 09:44 01/05/25 10:00 01/05/25 10:00 Temperature Pulse Rate 103 H 99 H Respiratory Rate 22 25 H Blood Pressure 157/94 H Pulse Oximetry 96 96 Oxygen Delivery Method Room Air MDM - Abdominal Pain Lab Data 01/05/25 08:25 01/05/25 08:25 Labs: Lab Results 01/05/25 01/05/25 Range/Units 08:25 10:05 WBC 8.5 (4.5-11.0) X10^3/uL RBC 5.10 (4.5-5.9) X10^6/uL Hgb 17.3 (13.5-17.5) g/dL Hct 50.3 (41-53) % MCV 98.8 (80-100) fL MCH 33.9 (26-34) PG MCHC 34.3 (30-36) % RDW 13.3 (11.6-14.8) % Plt Count 274 (150-400) X10^3/uL Neut % (Auto) 65.1 (50-75) % Lymph % (Auto) 24.1 L (25-40) % [place] % (Auto) 8.0 (3-14) % Eos % (Auto) 2.2 (2-4) % Baso % (Auto) 0.6 (0-2) % Neut # (Auto) 5600 (9424-0543) /uL Lymph # (Auto) 2100 (0853-4767) /uL [place] # (Auto) 700 (0-900) /uL Eos # (Auto) 200 (0-450) /uL Baso # (Auto) 100 (0-100) /uL Sodium 138 (137-145) mmol/L Potassium 3.8 (3.4-5.1) mmol/L Chloride 103 (98-107) mmol/L Carbon Dioxide 26 (22-32) mmol/L BUN 16 (9-20) mg/dL Creatinine 0.99 (0.66-1.25) mg/dL Estimated GFR > 60 (>60) mL/min BUN/Creatinine Ratio 16.2 (6-22) Glucose 128 H (80-110) mg/dL Lactate 1.5 (0.7-2.1) mmol/L Calcium 9.8 (8.4-10.2) mg/dL Total Bilirubin 1.8 H (0.2-1.3) mg/dL AST 37 (17-59) IU/L ALT 28 (<50) IU/L Alkaline Phosphatase 74 (38-126) U/L Total Creatine Kinase 49 L (55-170) U/L Troponin I < 0.012 (0.01-0.034) ng/mL NT-Pro-B Natriuret Pep 448 H (<125) pg/mL Total Protein 8.0 (6.3-8.2) g/dL Albumin 4.4 (3.5-5.0) g/dL Globulin 3.6 (1.7-4.1) g/dL Albumin/Globulin Ratio 1.2 (1.0-2.8) Lipase 41 (23-300) U/L Urine RBC None seen (0-5/HPF) Urine WBC 1-5/hpf (0-5/HPF) Ur Squamous Epith Cells None seen (0-5/HPF) Urine Bacteria None seen (None) Ur Culture Indicated? Specimen cultured Vol Urine Centrifuged 10ml (spun) Point of care testing: Urine Dip Bedside Urine Glucose Negative Bedside Urine Bilirubin - Negative Bedside Urine Ketone - Negative Urine Specific [place] 1.005 Bedside Urine Occult Blood - Negative Bedside Urine pH 7.5 Bedside Urine Protein - Negative Bedside Urine Urobilinogen - Negative Bedside Urine Nitrite - Negative Bedside Urine Leukocytes +/- 15 Esterase ECG Data Attestation: I personally reviewed and interpreted this ECG as follows: Prior ECG tracings: available for review Interpretation: AFib RVR rate of 124, QRS 82 QTC of 428, no ST elevation, nonspecific ST depression. Patient was prior from 01/01/2023 which shows sinus bradycardia. MDM Narrative Medical decision making narrative: EKG shows AFib RVR nonspecific change. Labs show white count 8.5 hemoglobin is 17 platelets of 274. Coags are negative, electrolytes are appropriate BUN 16 creatinine 0.99 glucose is 128 bilirubin is 1.8 AST ALT alk-phos and lipase are normal troponins less than 0.012 with a BNP of 448. Chest x-ray shows no acute change no pneumoperitoneum under the diaphragm no consolidation or pleural effusion heart size rate limit of normal unremarkable osseous structures. CTA chest abdomen pelvis shows 4 mm minor fissure nodule, other micro nodules are seen, consider yearly chest CT. Mild nonspecific wall thickening of the distal esophagus. Subcentimeter lesions in the kidneys too small to characterize probable cysts. There are punctate nonobstructing bilateral renal calculi. No acute aortic dissection no central PE no acute findings and chest abdomen and pelvis. Patient received fluids, diltiazem IV and diltiazem gtt. 64-year-old male history of chronic tobacco and alcohol use along with hypertension on aspirin daily patient presents with complaint of chronic abdominal pain that is worse and now radiating towards his back he was also found to be in AFib RVR which is new for patient, he had no sensation other than feeling dizzy so unsure when patient is atrial fib started he was prior EKG from December of 2022 that shows sinus rhythm. Because of this felt appropriate to obtain CT angio chest abdomen pelvis to evaluate for aneurysm or dissection though his tenderness is somewhat localized to the periumbilical area. Patient is tachycardic, slightly hypertensive. He defers anything for pain as he states he was ?use to it.For it was improving to the 100 range with rest and fluid but was given a dose of diltiazem. Patient is not a candidate for cardioversion as it's unclear his onset of atrial fibrillation. On work patient's labs show elevated bilirubin but otherwise fairly unremarkable. CTA does not show any changes to the vasculature, patient has a pulmonary nodule with some micro nodules and with his tobacco history should have annual chest CT. Has some nonspecific distal esophageal wall thickening but not in the area of his pain. Spoke with patient he does not wish to stay heart rate has not improved to the 90s to 100 range reviewed his findings we will hold on diltiazem drip was given a dose of oral diltiazem and Xarelto. After discussion we will start anticoagulation and medication for rate control have patient follow up with Cardiology. He was concerned about his abdominal discomfort does discussed he was some thickening of the esophagus we will give referral for follow up for EGD. Also discussed nodules mild well as micro nodules on his CT chest we will need your annual eval. Discharge Plan Departure Patient Disposition: Home Clinical Impression: Atrial fibrillation with rapid ventricular response, Pulmonary nodule, Esophageal thickening Instructions: DI for Atrial Fibrillation Activity Restrictions/Additional Instructions: Please follow-up with your physician as well as Cardiology. You have been found to be in atrial fibrillation this is an irregular heartbeat does not increase your risk for stroke so I would recommend taking a blood thinner daily. This medication can increase your risk of GI bleeding and if you have trauma or injury to your head you need to be evaluated. You are also found to have a small nodule on your lung CT as well as some micro nodules is recommended that you have annual CT of your chest for surveillance. There was also some thickening of the esophagus this could be related to your abdominal discomfort I would recommend omeprazole 40 mg once daily [id number]. Contacts also is included to follow up for EGD or scope with General surgery. Please call to set up an appointment. Please stop your aspirin and takes Xarelto once daily Take diltiazem once daily this is for rate control. Prescription sent to [facility] in [place]. Please return if you have recurrent symptoms, fevers, worsening abdominal back or flank pain, passing out, lightheadedness, new shortness of breath, persistently fast or elevated heart rate or other new or concerning changes. Prescriptions: New Xarelto 20 mg tablet 20 mg PO DAILY Qty: 30 0RF Rx Instructions: must administer with evening meal diltiazem HCl 120 mg capsule,extended release 24hr 120 mg PO DAILY Qty: 30 0RF No Action aspirin [Adult Low Dose Aspirin] 81 mg tablet,delayed release (DR/EC) 81 mg PO DAILY lisinopril 10 mg Tablet 10 mg PO DAILY atenolol 50 mg Tablet 50 mg PO DAILY lisinopril-hydrochlorothiazide 20-25 mg tablet 2 tab PO DAILY Qty: 60 0RF Referrals: Desmond Cuba MD [Physician] - Chi Hernandez MD [Physician] - Elsa Ferguson MD [Primary Care Provider] - Stand Alone Forms: Patient Portal/API/Survey
[2025-01-05 08:55] LABS: Alanine Aminotransferase 28 IU/L (<50); Albumin 4.4 g/dL (3.5-5.0); Albumin Globulin Ratio 1.2 (1.0-2.8); Alkaline Phosphatase 74 U/L (38-126); Aspartate Aminotransferase 37 IU/L (17-59); BUN Creatinine Ratio 16.2 (6-22); Bilirubin Total 1.8 mg/dL (0.2-1.3); Blood Urea Nitrogen 16 mg/dL (9-20); Calcium 9.8 mg/dL (8.4-10.2); Carbon Dioxide 26 mmol/L (22-32); Chloride 103 mmol/L (98-107); Creatine Kinase 49 U/L (55-170); Estimated Glomerular Filt Rate > 60 mL/min (>60); Globulin 3.6 g/dL (1.7-4.1); Glucose 128 mg/dL (80-110); HEMOLYSIS 20 (0-50); Lactate (Lactic Acid) 1.5 mmol/L (0.7-2.1); Lipase 41 U/L (23-300); Potassium 3.8 mmol/L (3.4-5.1); Sodium 138 mmol/L (137-145)
--- NOTE | 2025-01-05 08:58 | DI.CT.S_ITS ---
PROCEDURE: CT ANGIO CHEST ABDOMEN PELVIS INDICATIONS: abd pain now to back, new afib rvr, dizzy TECHNIQUE: Precontrast 5 mm thick sections acquired from the lung apices to the iliac crests. After the administration of intravenous contrast, 2.5 mm thick sections again acquired from the lung apices to the iliac crests. Maximum intensity projection (MIP) oblique sagittal and coronal reformats were then acquired. For radiation dose reduction, the following was used: automated exposure control. COMPARISON: None. FINDINGS: Image quality: Diagnostic Lungs and pleura: No pneumothorax. No hemothorax. No dense airspace disease or pleural effusion. Mild scattered atelectasis. 4 mm minor fissure nodule. Other micro nodules for example in the right image 11/132 are seen. If the patient is considered at elevated risk for pulmonary malignancy, consider yearly chest CT. Mediastinum, heart, and esophagus: Atherosclerotic and coronary calcifications. On precontrast images, there is no acute intramural hematoma. No aortic dissection identified following contrast administration. There is no central pulmonary embolism. Mild nonspecific wall thickening of the distal esophagus. No pathologic lymphadenopathy by size criteria. Chest wall and thyroid: Unremarkable Liver: No hypervascular liver lesion Gallbladder and biliary system: Unremarkable, nondilated Pancreas: No ductal dilation Spleen: Nonenlarged Adrenals: No discrete nodules Kidneys: Subcentimeter lesions are too small to characterize, probably cysts. No hydronephrosis. No solid renal mass On precontrast images, there are punctate nonobstructing bilateral renal calculi. Vessels and lymph nodes: No abdominal aortic aneurysm. No aortic dissection in the abdomen. [id number] atherosclerotic disease of the aorta and its branches. The major mesenteric arteries and renal arteries are patent. Atherosclerotic calcifications are most obvious at the branch vessel origins. No pathologic lymph nodes by size criteria Bowel and peritoneum: There is no acute small bowel obstruction. Colonic diverticula. Nondilated appendix. No is no drainable abscess or ascites Body wall: Small fat containing umbilical hernia. Colonic diverticula Pelvis: Under distended bladder Bones: Degenerative changes. No aggressive appearing osseous abnormality. IMPRESSION: No acute aortic dissection. No central pulmonary embolism. No acute findings in the chest, abdomen, or pelvis. Mild nonspecific distal esophageal wall thickening possibly esophagitis. Endoscopy could further evaluate if needed. Other findings above. Dictated by: Jorge Little M.D. on 01/05/2025 at 9:25 Approved by: Jorge Little M.D. on 01/05/2025 at 9:32
[2025-01-05 09:07] LABS: NT-proBNP (BNP-Adult 18+) 448 pg/mL (<125); Troponin I < 0.012 ng/mL (0.01-0.034)
[2025-01-05] MEDS: dilTIAZem 25 MG/5 ML SDV 10 MG IV (09:13)
--- NOTE | 2025-01-05 09:18 | PC.NURSE ---
Pt returned from CT scan. Pt is A/O x4. Denies chest pain. Continues to have abdominal pain. HR tachy at 102 and regularly irregular. Discussed plan, understands.
--- NOTE | 2025-01-05 10:04 | PC.NURSE ---
PT refusing to stay in hospital overnight. MD in room discussing plans
[2025-01-05 10:10] LABS: Urine Volume 10mL (spun)
[2025-01-05 10:17] LABS: Bacteria Urine None Seen; Culture Indicated Urine Specimen Cultured; RBC Urine None Seen (0-5/HPF); Squamous Epithelial Cell Urine None Seen (0-5/HPF); WBC Urine 1-5/HPF (0-5/HPF)
[2025-01-05] MEDS: dilTIAZem CD 120 MG CAP PO (10:22)
[2025-01-05] MEDS: RIVAROXABAN 10 MG TABLET 20 MG PO (10:22)
== END 2025-01-05 10:30 | disposition home or self-care (01) ==
PROVIDERS: Emergency Provider Emergency Medicine; PCP Family Medicine
DX: I48.20 Chronic atrial fibrillation, unspecified (principal); R91.1 Solitary pulmonary nodule; K22.89 Other specified disease of esophagus; I10 Essential (primary) hypertension; Z79.01 Long term (current) use of anticoagulants
CPT/HCPCS: 36415; 71045; 71275; 74174; 80053; 81003; 81015; 82550; 83605; 83690; 83880; 84484; 85025; 87086; 93005; 96361; 96374; 99284; Q9967

== ENCOUNTER 2025-08-04 15:01 | Emergency (ER) | payer OTHER, SELFPAY ==
[2025-08-04] VITALS (15 sets, daily range): BP systolic 90–155; BP diastolic 55–93; PULSE 72–107; RESP 16–24; TEMP 36.9; O2SAT 92–100; BMI 25.3
--- NOTE | 2025-08-04 15:13 | DI.RAD.S_ITS ---
PROCEDURE: XR CHEST 1V INDICATIONS: Chest Pain TECHNIQUE: One view of the chest was acquired. COMPARISON: [facility], CR, XR CHEST 1V, 06/10/2025, 9:07. [facility], CR, XR CHEST 1V, 01/05/2025, 8:27. FINDINGS AND IMPRESSION: No dense airspace disease or pleural effusion on this single view study. Normal heart size. Degenerative osseous changes. Dictated by: Jorge Little M.D. on 08/04/2025 at 16:10 Approved by: Jorge Little M.D. on 08/04/2025 at 16:10
--- NOTE | 2025-08-04 15:16 | EKG_ITS ---
[address] [address] Test Date: 2025-08-04 Pat Name: Armand Ramires Department: Room: Gender: Male [employer]: ROSARIO : 1960 Requested By: Order Number: [id number] Reading MD: Darryl Higgins MD Measurements Intervals [place] Rate: 104 P: MN: QRS: 78 QRSD: 88 T: 34 QT: 334 QTc: 439 Interpretive Statements Atrial flutter with variable AV block Electronically Signed On 08-16-2025 8:58:11 PST by Darryl Higgins MD
[2025-08-04 15:31] LABS: Add Manual Diff / Slide Review NO; Hematocrit 37.5 % (41-53); Hemoglobin 12.9 g/dL (13.5-17.5); Lymphocytes Absolute Auto 2100 /uL (1100-4500); Mean Corpuscular HGB Conc 34.5 % (30-36); Mean Corpuscular Hemoglobin 32.9 PG (26-34); Mean Corpuscular Volume 95.3 fL (80-100); Platelet Count 270 X10^3/uL (150-400)
[2025-08-04 15:41] LABS: INR 1.7 (0.9-1.3); Prothrombin Time 19.4 SECONDS (9.4-12.5)
[2025-08-04 15:44] LABS: Alanine Aminotransferase 23 IU/L (<50); Albumin 4.3 g/dL (3.5-5.0); Albumin Globulin Ratio 1.3 (1.0-2.8); Alkaline Phosphatase 59 U/L (38-126); Blood Urea Nitrogen 18 mg/dL (9-20); Calcium 9.8 mg/dL (8.4-10.2); Carbon Dioxide 32 mmol/L (22-32); Chloride 94 mmol/L (98-107); Creatine Kinase 76 U/L (55-170); Estimated Glomerular Filt Rate > 60 mL/min (>60); Globulin 3.2 g/dL (1.7-4.1); Glucose 93 mg/dL (70-99); HEMOLYSIS < 15 (0-50); Lipase 44 U/L (23-300); Magnesium 1.4 mg/dL (1.6-2.3); PTT Partial Thromboplastin Tim 39 SECONDS (25.1-36.5); Potassium 3.9 mmol/L (3.4-5.1); Sodium 131 mmol/L (137-145); Total Protein 7.5 g/dL (6.3-8.2)
[2025-08-04 15:56] LABS: NT-proBNP (BNP-Adult 18+) 1060 pg/mL (<125); Troponin I < 0.012 ng/mL (0.01-0.034)
[2025-08-04] MEDS: ASPIRIN 81 MG CHEW TAB 324 MG PO (17:08)
[2025-08-04 18:58] LABS: Troponin I < 0.012 ng/mL (0.01-0.034)
--- NOTE | 2025-08-04 20:35 | ED.ARRPALP ---
HPI - Arrhythmia/Palpitations General Chief Complaint: Arrhythmia/Palpitations Stated Complaint: irregular heartbeat, since yesterday Time Seen by Provider: 08/04/25 17:40 Source: patient Mode of arrival: Ambulatory History of Present Illness HPI narrative: 65-year-old male patient with a history of hypertension and atrial fibrillation on anticoagulation who presents with lightheadedness and palpitations at home since yesterday with visual disturbance also occurring occasionally. No chest pain or pressure. Related Data Home Medications ?Medication ?Instructions ?Recorded ?Confirmed aspirin 81 mg tablet,delayed 81 mg PO DAILY 10/05/21 01/12/25 release (Adult Low Dose Aspirin) atenolol 50 mg tablet 50 mg PO DAILY 01/01/23 01/12/25 lisinopril 10 mg tablet 10 mg PO DAILY 01/01/23 01/12/25 tamsulosin 0.4 mg capsule (Flomax) 0.4 mg PO DAILY 01/12/25 01/12/25 Previous Rx's ?Medication ?Instructions ?Recorded lisinopril 20 2 tab PO DAILY #60 tabs 01/01/23 mg-hydrochlorothiazide 25 mg tablet rivaroxaban 20 mg tablet (Xarelto) 20 mg PO DAILY #30 tabs 01/05/25 Allergies Allergy/AdvReac Type Severity Reaction Status Date / Time hornet venom Allergy Swelling Verified 06/10/25 09:08 of the Eye Review of Systems Review of Systems ROS Unobtainable: All systems reviewed & are unremarkable except as noted in HPI and below Cardiovascular Cardiovascular: Reports as per HPI Patient History Medical History Hypertension Family History Father Heart disease Hypertension Sister Colon cancer Social History marital status: unmarried,single household members: significant other lives independently: Yes occupational status: previously employed Smoking Status: Current every day smoker alcohol intake: current substance use type: does not use Smoking Status: Current every day smoker tobacco type: cigarettes alcohol intake frequency: 3 or more drinks per day Alcohol type: beer Exam Narrative Exam Narrative: General: Alert and conversant. No distress. Appears well nourished and well hydrated Craniofacial: No evidence of trauma. Nontender and no swelling. Eyes: PERRLA EOMI conjunctiva clear Lungs: Clear to auscultation with good air movement. No wheezing, rales or rhonchi. No respiratory distress Cardiac: Regular rate and irregularly irregular. No appreciable murmur or gallop Abdomen: Soft, nontender with no distention or masses. Normal bowel sounds. No rebound or guarding Musculoskeletal: Exam of the extremities, axial spine and ribcage reveals no deformity, bony tenderness or swelling. Range of motion intact Neuro: Alert and oriented. Cranial nerves, motor, sensory and cerebellar all grossly intact. No focal deficit Skin: Warm and normal color. No rashes Psychological: Normal affect and interaction. No evidence of delusion or psychosis. Normal mood. Initial Vital Signs Initial Vital Signs: Vital Signs Temperature 98.4 F 08/04/25 15:07 Pulse Rate 107 H 08/04/25 15:07 Respiratory Rate 16 08/04/25 15:07 Blood Pressure 155/93 H 08/04/25 15:07 Pulse Oximetry 100 08/04/25 15:07 Oxygen Delivery Method Room Air 08/04/25 15:07 Course Orders Ordered: ED Orders 08/04/25 15:13 XR chest 1V Stat EKG-12 Lead Stat 08/04/25 15:21 Complete Blood Count AUTO DIFF Stat Comprehensive Metabolic Panel Stat Lipase Stat Magnesium Stat NT-proBNP (BNP-Adult 18+) Stat PTT Partial Thromboplastin Avinash Stat Prothrombin Time INR Stat Troponin & CK Cardiac Panel Stat 08/04/25 18:20 Trop I [Troponin I] Stat Discontinued Medications Aspirin (Aspirin 81 Mg Chew Tab) 324 mg PO NOW ONE Stop: 08/04/25 15:14 Last Admin: 08/04/25 17:08 Dose: 324 mg Documented By: MADAN Vital Signs Vital signs: Vital Signs - 8 hr 08/04/25 15:07 08/04/25 16:58 08/04/25 17:00 Temperature 98.4 F Pulse Rate 107 H 97 H Respiratory Rate 16 Blood Pressure 155/93 H 123/72 Pulse Oximetry 100 96 Oxygen Delivery Method Room Air 08/04/25 17:00 08/04/25 17:30 08/04/25 17:30 Temperature Pulse Rate 99 H 97 H Respiratory Rate 24 20 Blood Pressure 97/56 L Pulse Oximetry 97 96 Oxygen Delivery Method 08/04/25 18:00 08/04/25 18:00 08/04/25 18:31 Temperature Pulse Rate 91 H 72 Respiratory Rate 18 Blood Pressure 90/55 L Pulse Oximetry 92 96 Oxygen Delivery Method 08/04/25 18:32 08/04/25 18:32 Temperature Pulse Rate 76 Respiratory Rate 22 Blood Pressure 128/82 Pulse Oximetry 96 Oxygen Delivery Method MDM - Arrhythmia/Palpitations Lab Data Attestation: I reviewed the patient's lab results. Lab results narrative: CBC and CMP essentially unremarkable other than mild anemia 08/04/25 15:21 08/04/25 15:21 Labs: Lab Results 08/04/25 08/04/25 Range/Units 15:21 18:20 WBC 7.2 (4.5-11.0) X10^3/uL RBC 3.93 L (4.5-5.9) X10^6/uL Hgb 12.9 L (13.5-17.5) g/dL Hct 37.5 L (41-53) % MCV 95.3 (80-100) fL MCH 32.9 (26-34) PG MCHC 34.5 (30-36) % RDW 13.3 (11.6-14.8) % Plt Count 270 (150-400) X10^3/uL Neut % (Auto) 61.7 (50-75) % Lymph % (Auto) 29.2 (25-40) % Stark % (Auto) 6.2 (3-14) % Eos % (Auto) 1.7 L (2-4) % Baso % (Auto) 1.2 (0-2) % Neut # (Auto) 4400 (8985-2637) /uL Lymph # (Auto) 2100 (3356-2257) /uL Stark # (Auto) 400 (0-900) /uL Eos # (Auto) 100 (0-450) /uL Baso # (Auto) 100 (0-100) /uL PT 19.4 H (9.4-12.5) SECONDS INR 1.7 H (0.9-1.3) APTT 39 H (25.1-36.5) SECONDS Sodium 131 L (137-145) mmol/L Potassium 3.9 (3.4-5.1) mmol/L Chloride 94 L (98-107) mmol/L Carbon Dioxide 32 (22-32) mmol/L BUN 18 (9-20) mg/dL Creatinine 1.17 (0.66-1.25) mg/dL Estimated GFR > 60 (>60) mL/min BUN/Creatinine Ratio 15.4 (6-22) Glucose 93 (70-99) mg/dL Calcium 9.8 (8.4-10.2) mg/dL Magnesium 1.4 L (1.6-2.3) mg/dL Total Bilirubin 0.3 (0.2-1.3) mg/dL AST 33 (17-59) IU/L ALT 23 (<50) IU/L Alkaline Phosphatase 59 (38-126) U/L Total Creatine Kinase 76 (55-170) U/L Troponin I < 0.012 < 0.012 (0.01-0.034) ng/mL NT-Pro-B Natriuret Pep 1060 H (<125) pg/mL Total Protein 7.5 (6.3-8.2) g/dL Albumin 4.3 (3.5-5.0) g/dL Globulin 3.2 (1.7-4.1) g/dL Albumin/Globulin Ratio 1.3 (1.0-2.8) Lipase 44 (23-300) U/L Imaging Data Chest x-ray: Attestation: I personally reviewed and interpreted this imaging study as follows: (Atrial flutter with variable AV block. ) My Impression: No acute disease. No infiltrates or effusion. ECG Data Attestation: I personally reviewed and interpreted this ECG as follows: MDM Narrative Medical decision making narrative: Patient with palpitations and mild dizziness which have resolved in the ER. He initially had atrial flutter with a rate of 104 but his monitor later showed atrial fibrillation with a controlled rate. Minimal symptoms. Lab work, EKG and chest x-ray including troponin levels from cardiac standpoint are all reassuring. Patient was given handouts on palpitations, atrial fibrillation and instructions to follow up with his doctor within the next week to discuss symptoms and medications. Return to the ER if worse Discharge Plan Departure Patient Disposition: Home Clinical Impression: Palpitation, Dizziness Instructions: DI for Atrial Fibrillation Activity Restrictions/Additional Instructions: Plan: Hydration, rest and supportive care and monitor symptoms. Follow up with your doctor within the next week to discuss symptoms and medications. May need adjustment on medications. Return to the ER if worse Prescriptions: No Action aspirin [Adult Low Dose Aspirin] 81 mg tablet,delayed release (DR/EC) 81 mg PO DAILY tamsulosin [Flomax] 0.4 mg capsule 0.4 mg PO DAILY Xarelto 20 mg tablet 20 mg PO DAILY Qty: 30 0RF Rx Instructions: must administer with evening meal lisinopril 10 mg Tablet 10 mg PO DAILY atenolol 50 mg Tablet 50 mg PO DAILY lisinopril-hydrochlorothiazide 20-25 mg tablet 2 tab PO DAILY Qty: 60 0RF Referrals: Elsa Ferguson MD [Primary Care Provider, Family Practice] Stand Alone Forms: Patient Portal/API
== END 2025-08-04 22:25 | disposition home or self-care (01) ==
PROVIDERS: Emergency Provider Emergency Medicine; PCP Family Medicine
DX: R00.2 Palpitations (principal); R42 Dizziness and giddiness
CPT/HCPCS: 36415; 71045; 80053; 82550; 83690; 83735; 83880; 84484; 85025; 85610; 85730; 93005; 93010; 99284